=== PATIENT | male | born 1965 | race Caucasian/White ===

== ENCOUNTER 2017-04-10 08:37 | Inpatient (IN) | payer MEDICAID ==
[~2017-04-10] VITALS: Ht 182.9 cm; Wt 105.0 kg
[~2017-04-10 08:37] MED LIST: AML5T PO; FURO40TA4 PO; HYDR25TA4 PO; METF-370 PO; POTA8TAB2 PO
[2017-04-10] MEDS ORDERED: BUPIVACAINE 0.25% INJ 50ML VIAL ONE (08:53)
[2017-04-10] MEDS ORDERED: BUPIVACAINE W/ EPINEPH 0.25% INJ 50ML MDV ONE (08:53)
[2017-04-10] MEDS ORDERED: LIDOCAINE 1% HCL (LOCAL ANESTH.) INJ 20ML MDV ONE (08:53)
[2017-04-10] MEDS ORDERED: LIDOCAINE W/ EPINEPHRINE 1 % INJ 30ML ONE (08:53)
[2017-04-10] MEDS: VANCOMYCIN HCL 1000 MG VL ONE ×2 (09:23→13:51)
[2017-04-10] MEDS ORDERED: VANCOMYCIN 1GM/250ML D5W 250 ML IV ONE (09:30)
[2017-04-10] MEDS ORDERED: POTASSIUM CHL 20MEQ/100ML 100 ML IV ONE ×4 (09:58→12:10)
[2017-04-10] MEDS ORDERED: NEOSTIGMINE 1 MG/ML INJ (10mg/10ML VIAL) IV ONE (10:22)
[2017-04-10] MEDS ORDERED: PROPOFOL 10 MG/ML 20 ML IV ONE (10:22)
[2017-04-10] MEDS ORDERED: DEXAMETHASONE SOD PHOS 10MG/1ML VIAL INJ IV ONE (10:22)
[2017-04-10] MEDS ORDERED: LABETALOL HCL 5 MG/ML 4ML SYRINGE IV ONE (10:22)
[2017-04-10] MEDS ORDERED: GLYCOPYRROLATE 0.2 MG/ML 1ML VIAL IV ONE (10:22)
[2017-04-10] MEDS ORDERED: fentaNYL CITRATE 100 MCG/2 ML VL ONE ×2 (10:23→10:25)
[2017-04-10] MEDS ORDERED: MIDAZOLAM HCL 1MG/1ML-2 ML VIAL ONE (10:23)
[2017-04-10] MEDS: SOD CHL 0.45% 1,000 ML IV SCH ×2 (12:48→21:23)
[2017-04-10] MEDS ORDERED: ACETAMINOPHEN/CODEINE#3 (300/30mg) TAB PO PRN (13:00)
[2017-04-10] MEDS ORDERED: LABETALOL HCL 5 MG/ML 4ML SYRINGE IV PRN (13:00)
[2017-04-10] MEDS ORDERED: ONDANSETRON HCL 4 MG/2 ML VIAL IV PRN (13:00)
[2017-04-10] MEDS ORDERED: HYDROmorphone HCL 2 MG/ML VL IV PRN ×2 (13:00)
[2017-04-10] MEDS ORDERED: DEXTROSE (50%) 50ML SYRG IV PRN (13:00)
[2017-04-10] MEDS ORDERED: diphenhdrAMINE HCL 50 MG/1 ML VL IV PRN (13:00)
[2017-04-10] MEDS ORDERED: ONDANSETRON HCL 4 MG/2 ML VIAL IV ONE (13:00)
[2017-04-10] MEDS: CEFOXITIN SODIUM 1 GM in D5W 5% 50 ML IV SCH ×2 (13:30→21:23)
[2017-04-10] MEDS: InsuLIN REG 1unit/0.01ml Soln (100units/ml) SC SCH (17:00)
[2017-04-10 17:14] VITALS: BP 116/75
[2017-04-10] MEDS: ACCU-CHEK COMFORT CURVE STRIP VI SCH ×2 (17:27→22:17)
[2017-04-10] MEDS: metFORMIN HYDROCHLORIDE 500 MG TAB PO SCH (17:27)
[2017-04-10 22:00] VITALS: BP 116/67
[2017-04-10] MEDS ORDERED: amLODIPine BESYLATE 5 MG TAB PO SCH (22:00)
[2017-04-10] MEDS ORDERED: InsuLIN REG 1unit/0.01ml Soln (100units/ml) SC SCH (22:00)
[2017-04-11] MEDS: CEFOXITIN SODIUM 1 GM in D5W 5% 50 ML IV SCH ×2 (05:10→13:14)
[2017-04-11] MEDS: SOD CHL 0.45% 1,000 ML IV SCH ×2 (05:11→13:14)
[2017-04-11 05:29] VITALS: BP 126/63
[2017-04-11] MEDS: InsuLIN REG 1unit/0.01ml Soln (100units/ml) SC SCH ×2 (06:06→11:30)
[2017-04-11] MEDS: ACCU-CHEK COMFORT CURVE STRIP VI SCH ×2 (06:06→11:58)
[2017-04-11] MEDS: metFORMIN HYDROCHLORIDE 500 MG TAB PO SCH (06:17)
[2017-04-11 06:50] LABS: BUN/Creatinine Ratio 16.5; Calcium 8.6 mg/dL (8.5-10.1); Potassium 4.1 mmol/L (3.5-5.1)
[2017-04-11 08:00] VITALS: BP 128/64
[2017-04-11 09:00] VITALS: BP 128/64
[2017-04-11] MEDS ORDERED: HCTZ 25 MG TAB PO SCH (10:00)
[2017-04-11] MEDS ORDERED: POTASSIUM CHLORIDE 8 MEQ TAB PO SCH (10:00)
[2017-04-11] MEDS ORDERED: FUROSEMIDE 40 MG TAB PO SCH (10:00)
[2017-04-11 13:00] VITALS: BP 133/76
[2017-04-11 13:53] VITALS: BP 133/76
[2017-04-11 15:40] VITALS: BP 133/76
== END 2017-04-11 15:40 | disposition home or self-care (01) | DRG 443 ==
LOC: OVERFLOW 08:37 → EDSTATUS 10:30 → CENTRAL 14:49
PROVIDERS: ADMIT Urology; ATTEND Internal Medicine
PROC: 0T774DZ Dilation of Left Ureter with Intraluminal Device, Percutaneous Endoscopic Approach (ICD-10-PCS; 2017-04-10)
PROC: 8E0W4CZ Robotic Assisted Procedure of Trunk Region, Percutaneous Endoscopic Approach (ICD-10-PCS; 2017-04-10)
PROC: 0TP5X0Z Removal of Drainage Device from Kidney, External Approach (ICD-10-PCS; 2017-04-10)
PROC: 0TC44ZZ Extirpation of Matter from Left Kidney Pelvis, Percutaneous Endoscopic Approach (ICD-10-PCS; principal; 2017-04-10 10:22)
DX: N13.5 Crossing vessel and stricture of ureter without hydronephrosis (principal); I10 Essential (primary) hypertension; N20.0 Calculus of kidney; Z86.19 Personal history of other infectious and parasitic diseases
CPT/HCPCS: 36415; 80048; 82962; 84132; 86850; 86900; 86901; A4565; J1100; J1815; J2001; J2250; J2704; J3480; J3490; J7060

== ENCOUNTER 2018-08-29 03:34 | Inpatient (IN) | payer MEDICAID ==
[~2018-08-29] VITALS: Ht 167.6 cm; Wt 100.6 kg
[~2018-08-29 03:34] MED LIST changes: -METF-370 PO
[2018-08-29 04:18] LABS: Basophils # (auto) 0 uL; Basophils % (auto) 0.3 % (0.0-2.0); Eosinophils # (auto) 0.1 uL; Eosinophils % (auto) 1.2 % (0.0-7.0); Hematocrit 44.3 % (41.0-53.0); Hemoglobin 15.8 g/dL (13.5-17.5); Lymphocytes # (auto) 0.8 uL; Lymphocytes % (auto) 11.4 % (10.0-50.0); Mean Corpuscular Hgb Conc. 35.7 g/dL (32.0-36.0); Mean Corpuscular Volume 92.5 fL (80.0-100.0); Monocytes # (auto) 0.5 uL; Neutrophils # (auto) 5.2 uL; Neutrophils % (auto) 79.1 % (37.0-80.0); Nucleated Red Blood Cells % 0.1 %; Platelet Count (auto) 150 10^3/uL (140-450); Red Blood Cells 4.79 10^6/uL (4.5-5.90); Red Cell Distribution Width 13.3 % (11.8-14.3); White Blood Cell 6.6 10^3/uL (4.4-10.8)
[2018-08-29 04:33] LABS: Albumin 4.1 g/dL (3.4-5.0); Calcium 8.4 mg/dL (8.5-10.1); Potassium 3.2 mmol/L (3.5-5.1)
[2018-08-29 04:37] LABS: BUN/Creatinine Ratio 14.3; Total Protein 7.7 g/dL (6.4-8.2)
[2018-08-29] MEDS ORDERED: SODIUM CHLORIDE 0.9% 1,000 ML IV ONE ×2 (06:46)
[2018-08-29] MEDS ORDERED: KETOROLAC TROMETH 30 MG/ML 1ML VIAL IV ONE (07:00)
[2018-08-29] MEDS ORDERED: POTASSIUM EFFERVESENT TAB 25 MEQ PO ONE (07:15)
[2018-08-29] MEDS ORDERED: DEXTROSE (50%) 50ML SYRG IV PRN (09:30)
[2018-08-29] MEDS ORDERED: ACETAMINOPHEN 500 MG TAB PO PRN (09:30)
[2018-08-29] MEDS ORDERED: cefTRIAXone 1GM/50ML D5W 50 ML IV ONE (09:30)
[2018-08-29] MEDS ORDERED: LORazepam 0.5 MG TAB PO PRN (09:30)
[2018-08-29] MEDS ORDERED: NITROGLYCERIN 0.4 MG SL TAB SL PRN (09:30)
[2018-08-29] MEDS ORDERED: KETOROLAC TROMETH 30 MG/ML 1ML VIAL IV PRN (09:30)
[2018-08-29] MEDS ORDERED: traMADol HCL 50 MG TAB PO PRN (09:30)
[2018-08-29] MEDS ORDERED: TEMAZEPAM 15 MG CAP PO PRN (09:30)
[2018-08-29] MEDS ORDERED: MORPHINE SULFATE 4 MG/ML SYR/VIAL IV PRN (09:30)
[2018-08-29] MEDS ORDERED: ONDANSETRON HCL 4 MG/2 ML VIAL IV PRN (09:30)
[2018-08-29] MEDS: SODIUM CHLORIDE 0.9% 1,000 ML IV SCH ×2 (10:41→19:31)
[2018-08-29] MEDS: FAMOTIDINE 20 MG TAB PO SCH ×3 (10:44→22:58)
[2018-08-29] MEDS: InsuLIN REG 1unit/0.01ml Soln (100units/ml) SC SCH ×3 (12:00→23:28)
[2018-08-29] MEDS ORDERED: ACCU-CHEK COMFORT CURVE STRIP VI SCH (12:00)
[2018-08-29] MEDS ORDERED: MANNITOL FTV 25% 12.5 GM/50 ML 50 ML IV ONE (15:00)
[2018-08-29] MEDS ORDERED: TAMSULOSIN HYDROCHLORIDE 0.4 MG CAP PO SCH (18:00)
[2018-08-29 19:58] LABS: Urine Amorphous Crystal FEW /hpf (None Seen); Urine Bacteria MOD /hpf (None Seen); Urine Blood 1+ /uL (Negative); Urine Mucus FEW (None Seen); Urine Specific Gravity 1.017 (1.001-1.035); Urine WBC 155 /hpf (0 - 3); Urine WBC Clumps PRESENT /hpf (None Seen)
[2018-08-29 20:12] LABS: Alcohol, Urine < 3.0 mg/dL (0-5); Amphetamine Screen, Urine POSITIVE (NEGATIVE); Barbiturate Scree,Urine NEGATIVE (NEGATIVE); Benzodiazephine Screen, Urine NEGATIVE (NEGATIVE); Cannabinoid Screen, Urine NEGATIVE (NEGATIVE); Cocaine Screen, Urine NEGATIVE (NEGATIVE); Opiate Scree,Urine NEGATIVE (NEGATIVE); Phencyclidine Screen, Urine NEGATIVE (NEGATIVE)
[2018-08-29 20:20] VITALS: BP 114/65
[2018-08-29 21:42] VITALS: BP 114/65
[2018-08-29] MEDS: ACCU-CHEK COMFORT CURVE STRIP VI SCH (23:29)
[2018-08-30 05:01] VITALS: BP 154/83
[2018-08-30] MEDS: SODIUM CHLORIDE 0.9% 1,000 ML IV SCH (05:10)
[2018-08-30] MEDS: InsuLIN REG 1unit/0.01ml Soln (100units/ml) SC SCH (06:00)
[2018-08-30] MEDS: ACCU-CHEK COMFORT CURVE STRIP VI SCH (06:12)
[2018-08-30 06:26] LABS: Basophils # (auto) 0 uL; Basophils % (auto) 0.2 % (0.0-2.0); Eosinophils # (auto) 0.1 uL; Eosinophils % (auto) 0.8 % (0.0-7.0); Hematocrit 46.9 % (41.0-53.0); Hemoglobin 16.4 g/dL (13.5-17.5); Lymphocytes # (auto) 0.9 uL; Lymphocytes % (auto) 8.2 % (10.0-50.0); Mean Corpuscular Hemoglobin 32.7 pg (28.0-32.0); Mean Corpuscular Hgb Conc. 35.1 g/dL (32.0-36.0); Mean Corpuscular Volume 93.3 fL (80.0-100.0); Monocytes # (auto) 0.7 uL; Monocytes % (auto) 6.5 % (0.0-12.0); Neutrophils # (auto) 9.2 uL; Neutrophils % (auto) 84.3 % (37.0-80.0); Nucleated Red Blood Cells % 1.1 %; Platelet Count (auto) 149 10^3/uL (140-450); Red Blood Cells 5.03 10^6/uL (4.5-5.90); Red Cell Distribution Width 13.2 % (11.8-14.3)
[2018-08-30 06:54] LABS: Albumin 3.6 g/dL (3.4-5.0); Calcium 8.3 mg/dL (8.5-10.1); Potassium 3.6 mmol/L (3.5-5.1)
[2018-08-30 06:59] LABS: BUN/Creatinine Ratio 15.2; Bilirubin, Total 1.1 mg/dL (0.2-1.0); Total Protein 7.1 g/dL (6.4-8.2)
[2018-08-30 09:00] VITALS: BP 109/68
[2018-08-30] MEDS ORDERED: cefTRIAXone 1GM/50ML D5W 50 ML IV SCH (09:00)
[2018-08-30] MEDS: FAMOTIDINE 20 MG TAB PO SCH (10:00)
== END 2018-08-30 11:03 | disposition left against medical advice (07) | DRG 463 ==
LOC: EDBD 03:34 → ER 03:42 → TELE 09:15 → TELE-CENTR 19:55
PROVIDERS: ADMIT Internal Medicine; ATTEND Internal Medicine
DX: N13.6 Pyonephrosis (principal); E11.9 Type 2 diabetes mellitus without complications; E87.6 Hypokalemia; I10 Essential (primary) hypertension; I70.0 Atherosclerosis of aorta; K44.9 Diaphragmatic hernia without obstruction or gangrene; Z83.3 Family history of diabetes mellitus; Z89.512 Acquired absence of left leg below knee; Z96.651 Presence of right artificial knee joint; Z90.49 Acquired absence of other specified parts of digestive tract; E66.9 Obesity, unspecified; Z68.35 Body mass index [BMI] 35.0-35.9, adult
CPT/HCPCS: 36415; 36600; 70450; 74176; 80053; 80307; 81001; 82150; 82805; 82962; 83036; 83690; 85025; 93005; 94761; 96361; 96365; 96375; G0378; J0696; J1885

== ENCOUNTER → 2022-08-22 06:19 | Emergency (ER) | payer MEDICAID ==
[~2022-08-22] VITALS: Ht 182.9 cm; Wt 99.0 kg
[2022-08-22 07:41] LABS: BUN/Creatinine Ratio 21.1; Calcium 8.7 mg/dL (8.5-10.1); Potassium 4.4 mmol/L (3.5-5.1)
[2022-08-22 07:44] LABS: Bilirubin, Total 0.5 mg/dL (0.2-1.0); Total Protein 7.1 g/dL (6.4-8.2)
[2022-08-22 07:47] LABS: Basophils # (auto) 0 10 ^3/uL (0-0.2); Basophils % (auto) 0.4 % (0.0-2.0); Eosinophils # (auto) 0.1 10 ^3/uL (0-0.8); Eosinophils % (auto) 1.8 % (0.0-7.0); Hematocrit 43.8 % (41.0-53.0); Hemoglobin 15.3 g/dL (13.5-17.5); Lymphocytes # (auto) 1.3 10 ^3/uL (0.4-5.4); Lymphocytes % (auto) 23.4 % (10.0-50.0); Mean Corpuscular Hemoglobin 31.9 pg (28.0-32.0); Mean Corpuscular Volume 91.2 fL (80.0-100.0); Monocytes # (auto) 0.4 10 ^3/uL (0-1.3); Monocytes % (auto) 7.5 % (0.0-12.0); Neutrophils # (auto) 3.6 10 ^3/uL (1.6-8.6); Neutrophils % (auto) 66.9 % (37.0-80.0); Red Cell Distribution Width 13.2 % (11.8-14.3); White Blood Cell 5.4 10^3/uL (4.4-10.8)
[2022-08-22 07:57] LABS: Urine Bacteria NONE SEEN /hpf (None Seen); Urine Blood Negative /uL (Negative); Urine Specific Gravity 1.017 (1.001-1.035); Urine WBC <1 /hpf (0 - 3)
[2022-08-22 12:16] VITALS: BP 131/86
== END | disposition home or self-care (01) ==
LOC: ER 06:19
DX: S39.011A Strain of muscle, fascia and tendon of abdomen, initial encounter (principal); E11.9 Type 2 diabetes mellitus without complications; I10 Essential (primary) hypertension; Z87.442 Personal history of urinary calculi; Z90.49 Acquired absence of other specified parts of digestive tract; X58.XXXA Exposure to other specified factors, initial encounter; Y93.89 Activity, other specified; Y92.89 Other specified places as the place of occurrence of the external cause; Y99.8 Other external cause status
CPT/HCPCS: 36415; 74176; 80053; 81001; 82150; 83690; 85025

== ENCOUNTER 2023-02-10 11:50 | Inpatient (IN) | payer MEDICAID ==
[~2023-02-10] VITALS: Ht 182.9 cm; Wt 102.1 kg
[2023-02-10] MEDS ORDERED: VANCOMYCIN 1GM/250ML 250 ML IV ONE (14:30)
[2023-02-10 15:01] LABS: Basophils # (auto) 0.1 10 ^3/uL (0-0.2); Eosinophils # (auto) 0.2 10 ^3/uL (0-0.8); Lymphocytes # (auto) 1.5 10 ^3/uL (0.4-5.4); Mean Corpuscular Hgb Conc. 36.4 g/dL (32.0-36.0)
[2023-02-10 15:13] LABS: Eosinophils % (auto) 2.5 % (0.0-7.0); Hematocrit 42.7 % (41.0-53.0); Hemoglobin 15.5 g/dL (13.5-17.5); Mean Corpuscular Volume 87.9 fL (80.0-100.0); Monocytes # (auto) 0.5 10 ^3/uL (0-1.3); Monocytes % (auto) 5.2 % (0.0-12.0); Neutrophils # (auto) 6.4 10 ^3/uL (1.6-8.6); Neutrophils % (auto) 74.3 % (37.0-80.0); Nucleated Red Blood Cells % 0.4 %; Red Blood Cells 4.85 10^6/uL (4.5-5.90); Red Cell Distribution Width 12.8 % (11.8-14.3); White Blood Cell 8.7 10^3/uL (4.4-10.8)
[2023-02-10 15:49] LABS: Albumin 4.1 g/dL (3.4-5.0); BUN/Creatinine Ratio 28.2 (10.0-20.0); Calcium 9.3 mg/dL (8.5-10.1); Potassium 3.7 mmol/L (3.5-5.1)
[2023-02-10 16:02] LABS: Bilirubin, Total 0.5 mg/dL (0.2-1.0); Total Protein 7.5 g/dL (6.4-8.2)
[2023-02-10] MEDS ORDERED: DEXTROSE (50%) 50ML SYRG IV PRN (18:30)
[2023-02-10] MEDS ORDERED: MORPHINE SULFATE INJ 2 MG/ml SYRG IV PRN (18:30)
[2023-02-10] MEDS ORDERED: DOCUSATE SOD 100 MG CAP PO PRN (18:30)
[2023-02-10] MEDS ORDERED: ONDANSETRON HCL 4 MG/2 ML VIAL IV PRN (18:30)
[2023-02-10] MEDS: InsuLIN REG 1unit/0.01ml Soln (100units/ml) SC SCH (22:00)
[2023-02-10] MEDS: ACCU-CHEK COMFORT CURVE STRIP VI SCH (22:00)
[2023-02-10] MEDS: CLINDAMYCIN 600MG IV 50 ML IV SCH (22:00)
[2023-02-11 02:15] VITALS: BP 130/68
[2023-02-11] MEDS ORDERED: METF-372 PO (04:50)
[2023-02-11] MEDS ORDERED: OMEG1CAP31 PO (04:50)
[2023-02-11] MEDS ORDERED: POTA1TAB64 (04:50)
[2023-02-11] MEDS ORDERED: OMEP-260 PO (04:50)
[2023-02-11] MEDS ORDERED: ASCO100076 PO (04:50)
[2023-02-11] MEDS ORDERED: FURO40TA4 PO (04:50)
[2023-02-11] MEDS ORDERED: GABA100C9 PO (04:50)
[2023-02-11] MEDS ORDERED: CHOL20TA PO (04:50)
[2023-02-11] MEDS ORDERED: VALS80TA4 (04:50)
[2023-02-11 04:55] VITALS: BP 125/70
[2023-02-11] MEDS: ACCU-CHEK COMFORT CURVE STRIP VI SCH (06:37)
[2023-02-11] MEDS: InsuLIN REG 1unit/0.01ml Soln (100units/ml) SC SCH (06:38)
[2023-02-11] MEDS: CLINDAMYCIN 600MG IV 50 ML IV SCH (06:51)
[2023-02-11 07:12] LABS: Basophils # (auto) 0.1 10 ^3/uL (0-0.2); Basophils % (auto) 0.8 % (0.0-2.0); Eosinophils # (auto) 0.2 10 ^3/uL (0-0.8); Eosinophils % (auto) 2.5 % (0.0-7.0); Hematocrit 39.3 % (41.0-53.0); Lymphocytes # (auto) 1.4 10 ^3/uL (0.4-5.4); Lymphocytes % (auto) 19.5 % (10.0-50.0); Mean Corpuscular Hemoglobin 31.8 pg (28.0-32.0); Mean Corpuscular Hgb Conc. 35.8 g/dL (32.0-36.0); Monocytes # (auto) 0.5 10 ^3/uL (0-1.3); Monocytes % (auto) 7.6 % (0.0-12.0); Neutrophils # (auto) 4.9 10 ^3/uL (1.6-8.6); Neutrophils % (auto) 69.6 % (37.0-80.0); Nucleated Red Blood Cells % 0.2 %; Red Blood Cells 4.41 10^6/uL (4.5-5.90); Red Cell Distribution Width 13.1 % (11.8-14.3)
[2023-02-11 07:27] LABS: Potassium 3.6 mmol/L (3.5-5.1)
[2023-02-11 07:36] LABS: Albumin 3.5 g/dL (3.4-5.0); BUN/Creatinine Ratio 22.8 (10.0-20.0); Bilirubin, Total 0.4 mg/dL (0.2-1.0); Total Protein 6.7 g/dL (6.4-8.2)
[2023-02-11 08:43] VITALS: BP 129/79
[2023-02-11] MEDS ORDERED: ENOXAPARIN SOD 40 MG/0.4 ML SYRINGE SC SCH (10:00)
== END 2023-02-11 08:30 | disposition left against medical advice (07) | DRG 383 ==
LOC: ER 11:50 → WEST WING 18:23
PROVIDERS: ADMIT Nurse Practitioner Family; ATTEND Nurse Practitioner Family
DX: L03.115 Cellulitis of right lower limb (principal); E11.9 Type 2 diabetes mellitus without complications; Z96.651 Presence of right artificial knee joint; I10 Essential (primary) hypertension; Z80.9 Family history of malignant neoplasm, unspecified; Z87.442 Personal history of urinary calculi; Z89.512 Acquired absence of left leg below knee
CPT/HCPCS: 36415; 80053; 82962; 85025; 87040; 93971; 96365; G0378; J1815

== ENCOUNTER 2025-08-27 18:26 | Emergency (ER) | payer MEDICAID ==
[~2025-08-27] VITALS: Ht 182.9 cm; Wt 100.0 kg
[~2025-08-27 18:26] MED LIST changes: -AML5T PO; +ASCO100076 PO; +CHOL20TA PO; +GABA-1308 PO; -HYDR25TA4 PO; +METF-372 PO; +OMEG-28 PO; +OMEP1CAP70 PO; +POTA1TAB64; -POTA8TAB2 PO; +VALS80TA4
[2025-08-27 20:00] LABS: Hematocrit 44.6 % (41.0-53.0); Hemoglobin 15.7 g/dL (13.5-17.5); Mean Corpuscular Hemoglobin 32.1 pg (28.0-32.0); Mean Corpuscular Volume 91.4 fL (80.0-100.0); Nucleated Red Blood Cells % 0.2 %
[2025-08-27 20:11] LABS: Chloride 105 mmol/L (98-107); Potassium 3.6 mmol/L (3.5-5.1); Sodium 142 mmol/L (136-145)
[2025-08-27 20:12] LABS: Anion Gap 12 (5-15); Calcium 9.4 mg/dL (8.7-10.4); Carbon Dioxide 25 mmol/L (20-31)
[2025-08-27 20:17] LABS: BUN/Creatinine Ratio 11.5 (10.0-20.0); Blood Urea Nitrogen 15 mg/dL (9-23)
[2025-08-27] MEDS: NITROGLYCERIN 0.4 MG SL TAB SL ONE (20:33)
[2025-08-27 21:01] LABS: Glucose 138 mg/dL (74-106)
[2025-08-27] MEDS: LABETALOL HCL 20 MG/4 ML VL IV ONE (21:34)
[2025-08-27 23:40] VITALS: BP 120/83; PULSE 100; RESP 20; TEMP 97.5; O2SAT 99
--- NOTE | 2025-08-28 11:25 | ED.PDOC ---
HPI Comments 60-year-old male who presents to the ED for chief complaint of high blood pressure. Patient states he was out drinking last night and states after coming back home he felt anxious and depressed. Patient states this a.m. he continued to feel anxious and depressed. Patient states he has been stressed due to recent moving in to a new living situation with new roommates which patient states exacerbated to his symptoms. Patient states he was overwhelmed and came to the ED for further evaluation. Patient in the ED states he has been drinking heavy for the past few days and states he drank a 5th of heavy alcohol. Patient in the ED stay he has a history of hypertension and hyperlipidemia but states he has not taken has a medications since last night. Patient in the ED denies any associated chest pain shortness a breath diaphoresis palpitations tona sea vomiting or any associated symptoms. Patient denies any other symptoms. Patient does not appear intoxicated. Past Medical history: Hypertension, hyperlipidemia, anxiety Past Surgical history: Left below-knee knee amputation, right knee surgery Medications: Amlodipine Social history: Heavy EOTH use, denies tobacco use, denies drug use Allergies: NKDA HPI: Poor Historian. REVIEW OF SYSTEMS: CONSTITUTIONAL: Denies acute: fever, diaphoresis, chills, generalized weakness. HEAD: Denies acute: headache, photophobia Eyes: Denies acute: Double vision, vision loss, eye pain, eye discharge. EARS: Denies acute: tinnitus, hearing loss, ear discharge, ear pain, THROAT: Denies acute: sore throat, swelling, difficulty swallowing , pain with swallowing, change in voice. NECK: Denies acute: neck pain, neck swelling, stiff neck. HEART: Denies acute : chest pain, palpitations, LUNGS: Denies acute: SOB, wheezing, cough, hemoptysis ABDOMEN: Denies acute: abdominal pain, Nausea, Vomiting, diarrhea, melena , hematemesis, hematochezia SKIN: Denies acute: rash, redness, lesions, itchiness. EXTREMITIES: Denies acute: calf pain, numbness, tingling, weakness, denies pain in extremity. Denies acute: Low back pain. Neuro: Denies acute: focal neurological deficit, motor or sensory focal neurological deficit, tremors, seizure like activity, confusion, dizziness, change in mental status, loss of bowel or bladder function, cauda equina like symptoms. : Denies acute: dysuria, hematuria, flank pain, increase in urinary frequency. PSYCH: Denies acute: hallucination, suicidal ideation, homicidal ideation. PHYSICAL EXAM: General: ----no----acute distress, awake and alert. Head: normocephalic, atraumatic. Neck: supple, trachea is midline, no swelling. Throat: Normal phonation. Eyes:, no erythema, no purulent discharge, no proptosis, no icterus. Heart: regular rate, regular rhythm, no significant murmur appreciated. Lungs: no apparent respiratory distress, Able to speak in full sentences. No wheezing, no rhonchi, no crackles. No stridors Clear to auscultation bilaterally. Abdomen: non tender to palpation, non distended, soft, no guarding, no rebound, + bowel sounds. Neuro: Awake, Alert, oriented to name, self, situation, follows commands GCS=15. Speech is normal. Skin: no petechia, no purpura, no cyanosis, non-pale, not jaundice. Lower extremities: --trace - Pitting edema no deformity, no focal swelling, no calf TTP. Left lower extremity below-knee amputation Makes eye contact. moves all four extremities. Face: no apparent facial droop. ED COURSE: DISCLAIMER: This medical document was created using an electronic medical record system with voice recognition software and computerized dictation system. Although this document has been carefully reviewed, there might still be some phonetic and typ ographical errors. Occasional wrong-word or "sound-alike" substitutions may have occurred due to the inherent limitations of voice recognition software. These areas are purely typographical due to imperfections of the software programs and do not reflect any compromise in the patient's medical care. Please read the chart carefully and recognize, using context, where these substitutions have occurred. Chief Complaint: High Blood Pressure Time Seen by MD: 19:50 Primary Care Provider: latasha Reviewed Notes: Medications, Allergies Allergies: Coded Allergies: NO KNOWN ALLERGIES (Unverified , 04/06/17) Home Meds Reported Medications Furosemide (Furosemide) 40 Mg Tab, 80 MG PO DAILY for 30 Days 02/11/23 Cholecalciferol (Vitamin D3) 20 Mcg Tab, 25 MCG PO, TAB 02/11/23 [place]-3 Fatty Acids (Fish Oil 1200 mg) 1 Cap Cap, 1 CAP PO, CAP 02/11/23 Ascorbic Acid (Vitamin C) 1,000 Mg Tab, 1000 MG PO, TAB 02/11/23 Gabapentin (Gabapentin) 100 Mg Cap, 100 MG PO DAILY for 30 Days, MG 02/11/23 Valsartan (Diovan) 80 Mg Tab 02/11/23 Omeprazole (Omeprazole Dr) 20 Mg Cap, 1 CAP PO DAILY 02/11/23 Potassium Chloride (K-Tab) 8 Meq Tab 02/11/23 Metformin Hydrochloride (Metformin Hcl) 1,000 Mg Tab, 1 TAB PO BID 02/11/23 Information Source: Patient Mode of Arrival: Wheelchair Brought in by: Self Past Medical History PAST MEDICAL HISTORY: DM, HTN, Kidney Stones Surgical History: BKA, Cholecystectomy Family History Family History: Family hx of Cancer Social History Smoker: Non-Smoker Alcohol: Heavy Drugs: Denies Drug Use Lives In: Home Was a procedure done? Was a procedure done?: No CP Differential Dx Differential Diagnosis: N/A Differential Diagnosis: Other (DDX include renal disease, thyroid disease, electrolyte abnormality, increased salt intake, medications non-compliance, undiagnosed HTN, Hypertensive crisis, hypertensive urgency., drug toxicity.) X-Ray, Labs, Meds, VS Vital Signs Date Time Temp Pulse Resp B/P (MAP) Pulse Ox O2 Delivery O2 Flow Rate FiO2 08/27/25 23:40 97.5 100 20 120/83 (95) 99 97.5 08/27/25 21:34 113 149/117 08/27/25 20:33 149/117 08/27/25 20:23 97.8 113 20 117/113 (114) 98 97.8 08/27/25 18:31 98.6 124 18 145/92 97 98.6 Lab Test 08/27/25 19:50 Range/Units White Blood Count 11.4 H 4.4-10.8 10^3/uL Red Blood Count 4.88 4.5-5.90 10^6/uL Hemoglobin 15.7 13.5-17.5 g/dL Hematocrit 44.6 41.0-53.0 % Mean Corpuscular Volume 91.4 80.0-100.0 fL Mean Corpuscular Hemoglobin 32.1 H 28.0-32.0 pg Mean Corpuscular Hemoglobin Concent 35.1 32.0-36.0 g/dL Red Cell Distribution Width 14.0 11.8-14.3 % Platelet Count 190 140-450 10^3/uL Mean Platelet Volume 8.3 6.9-10.8 fL Neutrophils (%) (Auto) 79.6 37.0-80.0 % Lymphocytes (%) (Auto) 10.6 10.0-50.0 % Monocytes (%) (Auto) 8.6 0.0-12.0 % Eosinophils (%) (Auto) 0.8 0.0-7.0 % Basophils (%) (Auto) 0.4 0.0-2.0 % Neutrophils # (Auto) 9.1 H 1.6-8.6 10 ^3/uL Lymphocytes # (Auto) 1.2 0.4-5.4 10 ^3/uL Monocytes # (Auto) 1.0 0-1.3 10 ^3/uL Eosinophils # (Auto) 0.1 0-0.8 10 ^3/uL Basophils # (Auto) 0 0-0.2 10 ^3/uL Nucleated Red Blood Cells 0.2 % Sodium Level 142 136-145 mmol/L Potassium Level 3.6 3.5-5.1 mmol/L Chloride Level 105 98-107 mmol/L Carbon Dioxide Level 25 20-31 mmol/L Anion Gap 12 5-15 Blood Urea Nitrogen 15 9-23 mg/dL Creatinine 1.31 H 0.700-1.30 mg/dL Glomerular Filtration Rate Calc 62 >90 mL/min BUN/Creatinine Ratio 11.5 10.0-20.0 Serum Glucose 138 H 74-106 mg/dL Calcium Level 9.4 8.7-10.4 mg/dL Troponin I High Sensitivity 13 </=54 ng/L Time of 1ST Reevaluation: 20:20 Reevaluation 1ST: Unchanged Patient Education/Counseling: Diagnosis, Treatment Family Education/Counseling: No Family Present Comments MDM: patient presented with the above HPI.--anxiety and hypertension----workup was initiated. patient was found with the above mentioned diagnosis. the following medications were ordered: please refer to order lists of meds and tests obtained by myself Dr. Hernandez. Patient ED course and VS have been stabilized. Patient has been reassessed in the ED and remained in a stable condition. Pertinent incidental findings were discussed with the patient and/or family. Patient/family voices understanding and is agreeable with plan. Patient has been observed in the ED adequate length of time to insure improv ement/stability. Escalation of care considered: Consideration of escalation to observation or admission Patient was DISCHARGED home in a stable condition. All the reports of any imaging studies that were ordered by myself were reviewed by myself. SEPSIS Sepsis Screen Date sepsis recognized/suspect: Aug 27, 2025 Time Sepsis recognized/suspect: 1832 Recent Procedure: No On Antibiotic Therapy: No Respiratory Rate >20: No Heart Rate >90: Yes Temp<36 C (96.8 F) or >38.3 C: No SBP <90 or MAP <65 mmHG: No New Acute Mental Status Change: No Is the patient on CPAP, BIPAP,: No Physician Orders Renal Dietitian (08/27/25 ) Electrocardigram (08/27/25 19:42) Vital Signs Date Time Temp Pulse Resp B/P (MAP) Pulse Ox O2 Delivery O2 Flow Rate FiO2 08/27/25 23:40 97.5 100 20 120/83 (95) 99 97.5 08/27/25 21:34 113 149/117 08/27/25 20:33 149/117 08/27/25 20:23 97.8 113 20 117/113 (114) 98 97.8 08/27/25 18:31 98.6 124 18 145/92 97 98.6 Laboratory Tests Test 08/27/25 19:50 White Blood Count 11.4 10^3/uL (4.4-10.8) H Departure 1 Departure Time of Disposition: 21:08 Impression: Primary Impression: Anxiety Additional Impressions: Hypertension Noncompliance with medication regimen Alcohol abuse Disposition: HOME / SELF CARE / HOMELESS Condition: Stable Additional Instructions: Additional instructions: Please read all instructions provided in this packet carefully. You MUST follow-up with your primary care/family doctor in 1 to 2 days. If you are unable to see your primary care/family doctor, please return to our emergency room for re-assessment and re-evaluation in 1 to 2 days. Return to the emergency room here in our facility or to the nearest ER [facility] if your symptoms change or worsen. CONSULTATIONS: you MUST Follow-up for consultation as soon as possible with: Dr.-cardiology in 1-2 days. Please call for appointment. You MUST call the consultants office yourself to make an appointment. You may need to arrange that through your insurance and/or your primary/family doctor. If you are unable to see the network security consultant in 1 to 2 days, you must return to our emergency room (or any other ER of your choice) for re-assessment and re- evaluation. Adequate fluid hydration. Although you have been discharged from the Emergency Department, this does not mean that you have a "clean bill of health". No definitive diagnosis for your symptoms has been made today. It is possible that you are in the process of developing a serious illness. This is why you must return to the ED without fail if any new or worsening symptoms develop. Monitor blood pressure at home at least 3 times a day. Discharged With: Self Critical Care Note Critical Care Time?: No Heart Score Heart Score: Heart Score Response (Comments) Value History Slightly Suspicious 0 EKG Normal 0 Age 45-64 1 Risk Factors 1 or 2 risk factors 1 Troponin Normal limit 0 Total 2 I personally scribed for SANJUANA HERNANDEZ DO ([email or web address]) on 08/27/25 at 19:47. Electronically submitted by Bertha Bagley ([employer]). I personally scribed for SANJUANA HERNANDEZ DO ([email or web address]) on 08/27/25 at 19:51. Electronically submitted by Bertha Bagley ([employer]). SANJUANA HERNANDEZ DO Aug 27, 2025 19:47
== END 2025-08-28 00:30 | disposition home or self-care (01) ==
LOC: ER 18:32
DX: F41.9 Anxiety disorder, unspecified (principal); I10 Essential (primary) hypertension; F10.10 Alcohol abuse, uncomplicated; E11.9 Type 2 diabetes mellitus without complications; Z91.148 Patient's other noncompliance with medication regimen for other reason; Z90.49 Acquired absence of other specified parts of digestive tract; Z79.899 Other long term (current) drug therapy
CPT/HCPCS: 36415; 80048; 84484; 85025; 96374